=== PATIENT | male | born 1965 | race Caucasian/White ===

== ENCOUNTER 2017-01-18 10:59 | Inpatient (IN) | payer OTHER, MEDICAID ==
[~2017-01-18] VITALS: Ht 167.6 cm; Wt 54.6 kg
[2017-01-18 13:18] VITALS: BP 108/71
[2017-01-18] MEDS ORDERED: HydrOXYzine PAMOATE 50 MG CAPSULE PO PRN (13:30)
[2017-01-18] MEDS ORDERED: DIAZEPAM 10 MG TABLET PO PRN (13:30)
[2017-01-18] MEDS ORDERED: LOPERAMIDE HCL 2 MG CAPSULE PO PRN (13:30)
[2017-01-18] MEDS ORDERED: GuaiFENesin/D-METHORPHAN [SUGAR-FREE] 200-20MG/10 ML SYRUP UDCUP PO PRN (13:30)
[2017-01-18] MEDS ORDERED: CYANOCOBALAMIN 1,000 MCG/ML VIAL IM ONE (13:30)
[2017-01-18 15:30] VITALS: BP 118/78
[2017-01-18 16:04] VITALS: BP 111/71
[2017-01-18 16:30] VITALS: BP 111/80
[2017-01-18 17:30] VITALS: BP 119/68
[2017-01-18] MEDS: THIAMINE HCL 100 MG TABLET PO SCH (17:43)
[2017-01-18 21:30] VITALS: BP 116/72
[2017-01-19] VITALS (7 sets, daily range): BP systolic 104–124; BP diastolic 69–75
[2017-01-19] MEDS ORDERED: DIAZEPAM 10 MG TABLET PO PRN (07:00)
[2017-01-19] MEDS ORDERED: ACETAMINOPHEN 325 MG TABLET PO PRN (08:15)
[2017-01-19] MEDS ORDERED: CloNIDine HCL 0.1 MG TABLET PO PRN (08:15)
[2017-01-19] MEDS ORDERED: MAG HYDROX/AL HYDROX/SIMETH ES 30 ML SUSPENSION UDCUP PO PRN (08:15)
[2017-01-19] MEDS ORDERED: ONDANSETRON HCL 4 MG TABLET PO PRN (08:15)
[2017-01-19] MEDS ORDERED: LOPERAMIDE HCL 2 MG CAPSULE PO PRN (08:15)
[2017-01-19] MEDS ORDERED: PETROLATUM,WHITE 71 GM JELLY TP PRN (08:15)
[2017-01-19] MEDS ORDERED: IBUPROFEN 600 MG TABLET PO PRN (08:15)
[2017-01-19] MEDS ORDERED: BACITRACIN 28.4 GM OINTMENT TP PRN (08:15)
[2017-01-19] MEDS ORDERED: MAGNESIUM HYDROXIDE SUSPENSION 30 ML UDCUP PO PRN (08:15)
[2017-01-19] MEDS ORDERED: ALBUTEROL SULFATE HFA 90 MCG/PUFF 8 GM INHALER IH PRN (08:15)
[2017-01-19] MEDS ORDERED: BENZOCAINE/MENTHOL LOZENGE MM PRN (08:15)
[2017-01-19 08:30] LABS: BASOPHILS % (AUTO) 1.2 % (0.0-2.0); EOSINOPHILS % (AUTO) 3.7 % (1.0-6.0); HEMATOCRIT 35.3 % (41-53); HEMOGLOBIN 11.1 g/dL (13.5-17.5); LYMPHOCYTES # (AUTO) 1.8 K/uL (1.0-4.8); LYMPHOCYTES % (AUTO) 27.4 % (22.0-44.0); MEAN CORPUSCULAR HEMOGLOBIN 25.9 pg (26.0-34.0); MEAN CORPUSCULAR HGB CONC 31.5 G/dL (31.0-37.0); MEAN CORPUSCULAR VOLUME 82 fL (80-100); MONOCYTES # (AUTO) 0.7 K/uL (0.1-1.0); MONOCYTES % (AUTO) 10.8 % (2.0-9.0); NEUTROPHILS # (AUTO) 3.7 K/uL (1.8-7.7); NEUTROPHILS % (AUTO) 56.9 % (40.0-70.0); PLATELET COUNT (AUTO) 431 K/uL (150-450); RED CELL DISTRIBUTION WIDTH 21.4 % (11.5-14.5); WHITE BLOOD COUNT (AUTO) 6.5 K/uL (4.5-11.0)
[2017-01-19 09:21] LABS: ALANINE AMINOTRANSFERASE 54 U/L (12-78); ALBUMIN 3.8 g/dL (3.4-5.0); ANION GAP 7 mmol/L (8-16); ASPARTATE AMINOTRANSFERASE 43 U/L (15-37); BILIRUBIN,TOTAL 0.4 mg/dL (0.1-1.0); CALCIUM, TOTAL 9.1 mg/dL (8.8-10.5); CARBON DIOXIDE 32 mmol/L (22-29); CHLORIDE 101 mmol/L (98-107); CREATININE 0.69 mg/dL (0.60-1.30); GLOMERULAR FILTR. RATE CALC > 60 mL/min (>60); POTASSIUM 4.1 mmol/L (3.5-5.1); SODIUM SERUM 140 mmol/L (136-145); THYROID STIMULATING HORMONE 2.01 uIU/mL (0.36-3.74); TOTAL PROTEIN, SERUM 7.7 g/dL (6.4-8.2); UREA NITROGEN, BLOOD 8 mg/dL (7-18)
[2017-01-19] MEDS: FOLIC ACID 1 MG TABLET PO SCH (09:50)
[2017-01-19] MEDS: THIAMINE HCL 100 MG TABLET PO SCH ×2 (09:50→16:56)
[2017-01-19] MEDS: MULTIVITAMINS WITH MINERALS, THERAPEUTIC TABLET PO SCH (09:50)
[2017-01-19] MEDS: DIAZEPAM 10 MG TABLET PO SCH ×4 (09:50→20:46)
[2017-01-19 10:27] LABS: RBC MORPHOLOGY COMMENT ABNORMAL RBC MORPH
[2017-01-20 03:53] VITALS: BP 120/86
[2017-01-20 04:33] VITALS: BP 113/75
[2017-01-20 08:41] VITALS: BP 111/78
[2017-01-20] MEDS: THIAMINE HCL 100 MG TABLET PO SCH (09:00)
[2017-01-20 09:13] VITALS: BP 111/78
[2017-01-20] MEDS: FOLIC ACID 1 MG TABLET PO SCH (09:24)
[2017-01-20] MEDS: MULTIVITAMINS WITH MINERALS, THERAPEUTIC TABLET PO SCH (09:24)
[2017-01-20] MEDS: DIAZEPAM 10 MG TABLET PO SCH ×2 (09:29→12:49)
[2017-01-21] MEDS ORDERED: DIAZEPAM 5 MG TABLET PO PRN (07:00)
[2017-01-21] MEDS ORDERED: DIAZEPAM 5 MG TABLET PO SCH (09:00)
[2017-01-22] MEDS ORDERED: DIAZEPAM 5 MG TABLET PO PRN (07:00)
== END 2017-01-20 16:05 | disposition home or self-care (01) | DRG 885 ==
LOC: B3A 13:27 → MERGE 13:27 → EDSTATUS 13:39 → B3A 14:04 → UNDOADMIN 14:04 → B3A 01-19 20:18
DX: F29 Unspecified psychosis not due to a substance or known physiological condition (principal); R45.851 Suicidal ideations; F10.129 Alcohol abuse with intoxication, unspecified; G47.00 Insomnia, unspecified; M19.90 Unspecified osteoarthritis, unspecified site; F19.10 Other psychoactive substance abuse, uncomplicated; Z79.899 Other long term (current) drug therapy
CPT/HCPCS: 84439; 84443; J3420

== ENCOUNTER 2017-03-31 14:01 | Emergency (ER) | payer MEDICARE, OTHER ==
[~2017-03-31] VITALS: Ht 162.6 cm; Wt 56.8 kg
[2017-03-31 14:22] LABS: GLUCOSE,POINT OF CARE 74 MG/DL (70-110)
[2017-03-31] MEDS ORDERED: prostate med PO (14:29)
[2017-03-31] MEDS ORDERED: PROZ10 PO (14:29)
[2017-03-31 16:50] VITALS: BP 99/62
== END 2017-03-31 17:15 | disposition home or self-care (01) ==
LOC: EMS 14:02 → EDBD 14:02 → EMS 17:15
DX: T51.91XA Toxic effect of unspecified alcohol, accidental (unintentional), initial encounter (principal); F17.210 Nicotine dependence, cigarettes, uncomplicated; Y92.89 Other specified places as the place of occurrence of the external cause
CPT/HCPCS: 82962; 99283